=== PATIENT | male | born 1985 | race Asian ===

== ENCOUNTER 2020-10-17 18:30 | Emergency (ER) | payer BC ==
[~2020-10-17] VITALS: Ht 177.8 cm; Wt 90.7 kg
[2020-10-17 18:37] VITALS: BP 133/81
--- NOTE | 2020-10-17 18:50 | Emergency Room Report ---
History of Present Illness General Chief Complaint: Skin Rash/Abscess Source: Patient Present Illness HPI 35-year-old male with history of eczema usually using hydrocortisone cream here complaining of worsening eczema in the suprapubic area after he scratches too much. Complains of pain and requesting some pain medication. Denies fever and chills, pus drainage. Does not recall contact with any new allergens. Is sitting comfortably with stable vital signs. Allergies: Coded Allergies: No Known Allergies (Unverified , 10/17/20) COVID-19 Screening Contact w/high risk pt: No Experienced COVID-19 symptoms?: No COVID-19 Testing performed [employer]ER: Yes COVID-19 Screening: Negative COVID-19 COVID-19 Testing Source: [employer]SE [employer]EMENT[employer] Patient History Past Medical History: see triage record Past Surgical History: none Pertinent Family History: none Immunizations: UTD Reviewed Nursing Documentation: PMH: Agreed; PSxH: Agreed Nursing Documentation-PMH Past Medical History: No History, Except For Hx Asthma: Yes Review of Systems All Other Systems: negative except mentioned in HPI Physical Exam Vital Signs Date Time Temp Pulse Resp B/P (MAP) Pulse Ox O2 Delivery O2 Flow Rate FiO2 10/17/20 18:37 98.4 88 16 133/81 (98) 95 Room Air Sp02 EP Interpretation: reviewed, normal General Appearance: no apparent distress, alert, GCS 15, non-toxic Head: normocephalic, atraumatic Eyes: bilateral eye normal inspection, bilateral eye PERRL ENT: hearing grossly normal, normal pharynx, no angioedema, normal voice Neck: full range of motion, supple/symm/no masses Respiratory: no respiratory distress, no retraction, no accessory muscle use, speaking full sentences Gastrointestinal: non tender, soft Musculoskeletal: back normal Neurologic: alert, motor strength/tone normal, oriented x3, sensory intact, responsive, speech normal Psychiatric: judgement/insight normal, memory normal, mood/affect normal, no suicidal/homicidal ideation Skin: other - Cellulitis suprapubic catheter contact dermatitis Lymphatic: no adenopathy Medical Decision Making PA Attestation All diagnoses and treatment plans were reviewed and discussed with my supervising physician Dr. Reddy Diagnostic Impression: Primary Impression: Cellulitis Additional Impression: Contact dermatitis ER Course 35-year-old male with history of eczema usually using hydrocortisone cream here complaining of worsening eczema in the suprapubic area after he scratches too much. Complains of pain and requesting some pain medication. Denies fever and chills, pus drainage. Does not recall contact with any new allergens. Is sitting comfortably with stable vital signs. Ddx considered but are not limited to : Cellulitis, contact dermatitis, superficial infection, abscess Vital signs: are WNL, pt. is afebrile H&PE are most consistent with: Cellulitis, contact dermatitis, ORDERS: Keflex, ibuprofen, prednisone, triamcinolone cream ED INTERVENTIONS: None required at this time. DISCHARGE: At this time pt. is stable for d/c to home. Will provide printed patient care instructions, and any necessary prescriptions. Care plan and follow up instructions have been discussed with the patient prior to discharge. Follow with welder gun, take medication as directed, if worsening symptoms return to emergency room Last Vital Signs Date Time Temp Pulse Resp B/P (MAP) Pulse Ox O2 Delivery O2 Flow Rate FiO2 10/17/20 18:37 98.4 88 16 133/81 (98) 95 Room Air Disposition: HOME, SELF-CARE Condition: Stable Scripts Ibuprofen (Ibu) 800 Mg Tablet 800 MG PO TID, #30 TAB Prov: Antoine Bangura 10/17/20 Triamcinolone Acetonide (Triamcinolone Acetonide 0.5% Cream*) 15 Gm Cream..g. 2 GM TP TID, #15 GM Prov: Antoine Bangura 10/17/20 Prednisone* (PREDNISONE*) 20 Mg Tablet 40 MG ORAL DAILY for 5 Days, #10 TAB Prov: Antoine Bangura 10/17/20 Cephalexin* (KEFLEX*) 500 Mg Capsule 500 MG ORAL EVERY 6 HOURS for 7 Days, #28 CAP Prov: Antoine Bangura 10/17/20 Patient Instructions: Cellulitis, [id number], Contact Dermatitis, [id number] Additional Instructions: Take medication as directed, follow primary care provider, if worsening symptoms return to the emergency room Antoine Bangura Oct 17, 2020 18:50
[2020-10-17] MEDS ORDERED: PREDNISONE20 MG ORAL (18:52)
[2020-10-17] MEDS ORDERED: IBU800 MG PO (18:52)
[2020-10-17] MEDS ORDERED: TRIAMCINOLONE A15 G1 TP (18:52)
[2020-10-17] MEDS ORDERED: CEPHALEXIN500 MG ORAL (18:52)
[2020-10-17 18:53] VITALS: BP 133/81
== END 2020-10-17 19:00 | disposition home or self-care (01) ==
LOC: EMR 19:00
DX: L03.818 Cellulitis of other sites (principal); L25.9 Unspecified contact dermatitis, unspecified cause; J45.909 Unspecified asthma, uncomplicated
CPT/HCPCS: 99282

== ENCOUNTER 2020-12-03 10:48 | Emergency (ER) | payer BC ==
[~2020-12-03] VITALS: Ht 177.8 cm; Wt 95.3 kg
[~2020-12-03 10:48] MED LIST: CEPHALEXIN500 MG ORAL; IBU800 MG PO; PREDNISONE20 MG ORAL; TRIAMCINOLONE A15 G1 TP
--- NOTE | 2020-12-03 11:00 | NUR ---
ED Nurse Note:pt. c/o right ribs and chest pain on the movement afer he was lifting furniture 2 days ago
[2020-12-03 11:19] VITALS: BP 119/82
[2020-12-03] MEDS ORDERED: CYCLOBENZAPRINE10 MG ORAL (11:34)
[2020-12-03] MEDS ORDERED: VOLTAREN50 MG PO (11:34)
[2020-12-03 11:40] VITALS: BP 119/82
--- NOTE | 2020-12-03 11:40 | NUR ---
ED Nurse Note: Pt cleared by health care Provider for discharge. DC instructions/prescription was given and explained to pt and verbalized understanding of teachings. All medical deviecs such as ID band removed. Pt is AAO x4, ambulatory and left with all personal belongings.
--- NOTE | 2020-12-03 11:55 | Emergency Room Report ---
History of Present Illness General Chief Complaint: Pain Source: Patient Present Illness HPI HPI: 35-year-old male no medical history presents with right-sided chest wall pain after lifting a heavy couch. He states the pain is about 8 out of 10, worse with movement. Worse with palpation. Denies any other injuries. No fevers shortness of breath. No nausea or vomiting. No sick contacts. Allergies: Coded Allergies: No Known Allergies (Unverified , 10/17/20) COVID-19 Screening Contact w/high risk pt: No Experienced COVID-19 symptoms?: No COVID-19 Testing performed RUNNING INSTRUCTOR: No Patient History Reviewed Nursing Documentation: PMH: Agreed; PSxH: Agreed Nursing Documentation-PMH Past Medical History: No History, Except For Hx Asthma: Yes Review of Systems All Other Systems: negative except mentioned in HPI Physical Exam Vital Signs Date Time Temp Pulse Resp B/P (MAP) Pulse Ox O2 Delivery O2 Flow Rate FiO2 12/03/20 10:56 98.1 105 17 119/82 (94) 99 Sp02 EP Interpretation: reviewed, normal General Appearance: well appearing, no apparent distress Head: normocephalic, atraumatic Eyes: bilateral eye PERRL, bilateral eye EOMI ENT: hearing grossly normal, moist mucus membranes Neck: full range of motion, supple Respiratory: lungs clear, normal breath sounds, no rhonchi, no respiratory distress, no retraction, no wheezing, other - Chest wall tenderness noted along right no deformity or crepitus, chest symmetrical Cardiovascular #1: normal peripheral pulses, regular rate, rhythm, no murmur Gastrointestinal: non tender, soft, non-distended, no guarding Neurologic: alert, oriented x3, no focal defects Skin: normal color, warm/dry Medical Decision Making Diagnostic Impression: Primary Impression: Chest wall muscle strain ER Course Differential included chest wall strain, contusion less likely pneumonia pneumothorax or other serious etiology. Patient had mild chest wall tenderness. He was in no acute distress. Bilateral lung sounds auscultated. No fever. Low suspicion for ACS. This occurred after lifting a heavy couch. Patient will be placed on anti-inflammatories, muscle relaxants and follow-up with PMD. Given return precautions. Last Vital Signs Date Time Temp Pulse Resp B/P (MAP) Pulse Ox O2 Delivery O2 Flow Rate FiO2 12/03/20 11:40 98.1 67 17 119/82 99 Disposition: HOME, SELF-CARE Condition: Stable Scripts Cyclobenzaprine Hcl* (FLEXERIL*) 10 Mg Tablet 10 MG ORAL THREE TIMES A DAY PRN for muscle spasm, #15 TAB Prov: Blaze Hermosillo M.D. 12/03/20 Diclofenac Sod (Diclofenac Potassium) 50 Mg Tablet 50 MG PO BID PRN for For Pain, #20 TAB Prov: Blaze Hermosillo M.D. 12/03/20 Referrals: [facility] [facility] Patient Instructions: Chest Wall Pain, [id number] Additional Instructions: Patient is instructed to follow-up with her primary care doctor, primary care clinic or [facility] in 1 to 2 days. Patient instructed to return for any worsening symptoms or concerns. Blaze Hermosillo M.D. Dec 03, 2020 11:55
== END 2020-12-03 11:40 | disposition home or self-care (01) ==
LOC: EMR 11:30
DX: S29.011A Strain of muscle and tendon of front wall of thorax, initial encounter (principal); J45.909 Unspecified asthma, uncomplicated; X50.0XXA Overexertion from strenuous movement or load, initial encounter; Y93.89 Activity, other specified; Y92.9 Unspecified place or not applicable
CPT/HCPCS: 99282